=== PATIENT | male | born 1980 | race Caucasian/White ===

== ENCOUNTER 2018-11-07 13:02 | Emergency (ER) | payer BC ==
[~2018-11-07] VITALS: Ht 182.9 cm; Wt 117.0 kg
[2018-11-07] MEDS ORDERED: FLONASE 0.05%50 MCG NASAL (13:22)
[2018-11-07] MEDS ORDERED: CLARITIN10 MG PO (13:22)
[2018-11-07] MEDS ORDERED: IBUPROFEN 800800 M1 PO (13:23)
[2018-11-07 14:27] VITALS: BP 135/77
== END 2018-11-07 14:28 | disposition home or self-care (01) ==
LOC: M.ERS 13:02
DX: R42 Dizziness and giddiness (principal); R51 Headache